=== PATIENT | female | born 1970 | race American Indian/Alaskan Native ===

== ENCOUNTER 2020-07-21 08:50 | Emergency (ER) | payer SELFPAY ==
[2020-07-21 09:03] VITALS: BP 151/87
[2020-07-21] MEDS ORDERED: KETOROLAC 30 MG/1 ML INJ IM ONE (09:42)
--- NOTE | 2020-07-21 10:33 | XRay Report ---
LEFT CALCANEUS 3 VIEWS INDICATION: Left heel pain. COMPARISON: No relevant prior imaging study available. FINDINGS: No acute skeletal abnormality. There is mild insertional distal Achilles enthesopathy. Corticated oss ific density adjacent to the calcaneocuboid articulation is likely an os perineum. IMPRESSION: 1. No acute findings. Signer Name: Fer Davis MD Signed: 07/21/2020 10:28 AM Workstation Name: [id number]
--- NOTE | 2020-07-21 10:53 | Emergency Department Report ---
ED Extremity Problem HPI - General Chief complaint: Extremity Problem,Nontraumatic Stated complaint: LEFT HEEL PAIN Time Seen by Provider: 07/21/20 09:41 Source: patient Mode of arrival: Ambulatory Limitations: No Limitations - History of Present Illness Initial comments: 50-year-old -[place] female presents to the emergency room complaining of left heel pain for the last week. Patient states she has been taking ibuprofen which helps somewhat. Patient states she last took ibuprofen was last night. Patient does admit that she stands on concrete majority of her day. She also reports she has a history of diabetes HIV and hypertension and takes her medications as prescribed. She does have an allergy to Bactrim. Complaint: extremity pain Onset/Timin -: week(s) Location: left, other (Heel) Severity scale (0 -10): 9 Quality: stabbing, aching, sharp Consistency: constant Improves with: rest Worsens with: weight bearing, walking, palpation Associated Symptoms: denies other symptoms - Related Data Previous Rx's Medication Instructions Recorded Last Taken Type Diclofenac [Trevon Vogt] 75 mg PO TID #15 tablet 07/21/20 Unknown Rx Allergies Allergy/AdvReac Type Severity Reaction Status Date / Time sulfamethoxazole Allergy Unknown Verified 07/21/20 09:01 [From Bactrim] trimethoprim [From Bactrim] Allergy Unknown Verified 07/21/20 09:01 ED Review of Systems ROS: Stated complaint: LEFT HEEL PAIN Other details as noted in HPI ED Past Medical Hx - Past Medical History Previous Medical History?: Yes Hx Hypertension: Yes Hx Diabetes: Yes Hx HIV: Yes - Medications Home Medications: Home Medications Medication Instructions Recorded Confirmed Last Taken Type Diclofenac [Trevon Vogt] 75 mg PO TID #15 tablet 07/21/20 Unknown Rx ED Physical Exam - General Limitations: No Limitations General appearance: alert, in no apparent distress - Head Head exam: Present: atraumatic, normocephalic - Eye Eye exam: Present: normal appearance, EOMI - ENT ENT exam: Present: mucous membranes moist - Expanded Lower Extremity Exam Left Hip exam: Present: normal inspection Upper Leg exam: Present: normal inspection Knee exam: Present: normal inspection Lower Leg exam: Present: normal inspection Ankle exam: Present: normal inspection Foot/Toe exam: Present: full ROM, tenderness. Absent: swelling Neuro vascular tendon exam: Present: no vascular compromise - Neurological Exam Neurological exam: Present: alert, oriented X3 - Psychiatric Psychiatric exam: Present: normal affect, normal mood - Skin Skin exam: Present: warm, dry, intact, normal color. Absent: rash ED Course Vital Signs 07/21/20 09:02 Temperature 98.5 F Pulse Rate 81 Respiratory 16 Rate Blood Pressure 151/87 [Right] O2 Sat by Pulse 96 Oximetry ED Medical Decision Making - Radiology Data Radiology results: report reviewed Patient: JOHN RIVERS MR#: [id number] : 1970 Acct:[id number] Age/Sex: 50 / F ADM Date: 07/21/20 Loc: ED Attending Dr: Ordering Physician: ALYSON VALE Date of Service: 07/21/20 Procedure(s): XR calcaneous 2+V LT Accession Number(s): [id number] cc: ALYSON VALE Fluoro Time In Minutes: LEFT CALCANEUS 3 VIEWS INDICATION: Left heel pain. COMPARISON: No relevant prior imaging study available. FINDINGS: No acute skeletal abnormality. There is mild insertional distal Achilles enthesopathy. Corticated ossific density adjacent to the calcaneocuboid articulation is likely an os perineum. IMPRESSION: 1. No acute findings. Signer Name: Fer Davis MD Signed: 07/21/2020 10:28 AM Workstation Name: [id number] Transcribed By: Dictated By: Fer Davis MD Electronically Authenticated By: Fer Davis MD Signed Date/Time: 07/21/20 1028 DD/ 1027 TD/TT: - Medical Decision Making 50-year-old -[place] female presents to the emergency room complaining of left heel pain for the last week. Patient states she has been taking ibuprofen which helps somewhat. Patient states she last took ibuprofen was last night. Patient does admit that she stands on concrete majority of her day. She also reports she has a history of diabetes HIV and hypertension and takes her medications as prescribed. She does have an allergy to Bactrim. X-ray of the left heel shows that she has a Achilles enthesopath which is usually linked to overuse or stress put on the Achilles. Recommendation is usually a night splint for heel or elevated heel cup this can all be done through her orthopedic provider. Critical care attestation.: If time is entered above; I have spent that time in minutes in the direct care of this critically ill patient, excluding procedure time. ED Disposition Clinical Impression: Inflammatory heel pain Disposition: DC- TO HOME OR SELFCARE Is pt being admited?: No Does the pt Need Aspirin: No Condition: Stable Additional Instructions: X-ray shows that you have a forming heel spur. I recommended she follow-up with orthopedic provider as they may need to do put you in a heel splint that you wear or a heel cup to elevate your heel. I am referring you to an orthopedic provider you may select one also in your insurance plan. Ibuprofen for pain management. Or you can take the diclofenac's prescription pain medicine. Be sure to drink and eat before taking medications. Prescriptions: Ravi Vogt [Trevon Vogt] 75 mg PO TID #15 tablet Referrals: PRIMARY CAREMD [Primary Care Provider] - 3-5 Days ZORAN SMITH MD [Staff Physician] - 3-5 Days Forms: Work/School Release Form(ED)
== END 2020-07-21 11:10 | disposition home or self-care (01) ==
LOC: ED 08:51
DX: M79.672 Pain in left foot (principal); I10 Essential (primary) hypertension; E11.9 Type 2 diabetes mellitus without complications; Z21 Asymptomatic human immunodeficiency virus [HIV] infection status; Z79.899 Other long term (current) drug therapy
CPT/HCPCS: 73650; 96372; 99283; J1885